=== PATIENT | female | born 1970 | race Caucasian/White ===

== ENCOUNTER → 2016-11-25 | Outpatient (CLI) | payer BC ==
[~2016-11-25] MED LIST: AMBIEN 10MG10 MG PO; LEVOXYL0.025 MG PO; NORCO 325 MG-51 TAB PO; PYRIDIUM 100MG100 MG PO; REMICADE V100 MG/VIA IV
== END ==
LOC: COL.RAD 12:45
DX: S92.421A Displaced fracture of distal phalanx of right great toe, initial encounter for closed fracture (principal); S92.024A Nondisplaced fracture of anterior process of right calcaneus, initial encounter for closed fracture; S92.254A Nondisplaced fracture of navicular [scaphoid] of right foot, initial encounter for closed fracture; Q66.89 Other specified congenital deformities of feet; X58.XXXA Exposure to other specified factors, initial encounter

== ENCOUNTER 2019-09-20 15:39 | Day surgery (SDC) | payer MEDICARE ==
[~2019-09-20] VITALS: Ht 165.1 cm; Wt 61.5 kg
[2019-09-20] VITALS (7 sets, daily range): BP systolic 88–107; BP diastolic 52–71; PULSE 64–85; TEMP 97.5–98.7
[2019-09-20] MEDS ORDERED: PHENERGAN50 M1 PO (17:06)
[2019-09-20] MEDS ORDERED: XANAX 0.5MG0.5 MG PO (17:07)
--- NOTE | 2019-09-20 19:26 | NUR ---
Patient left with PACU nurse DENICE Fernandez at this time.
--- NOTE | 2019-09-20 21:24 | NUR ---
Received report from DENICE Fernandez in PACU
--- NOTE | 2019-09-20 21:25 | NUR ---
Per Dr. Niurka christiansen to d/c BEHAVIORAL HEALTH CARE COORDINATOR pump
--- NOTE | 2019-09-20 21:35 | NUR ---
Arrived to 348 at 2124. Urinated 100 ml of reddish urine. Reports 7/10 pain. Drowsy at this time. VS taken. Will monitor.
--- NOTE | 2019-09-20 21:45 | NUR ---
Assessment complete. Lungs clear. Heart sounds normal. Bowels active x4. Pulses strong throughout. No edema noted. Reports 7/10 pain at this time. Denies needs. [facility] pharmacy called while in room regarding order for rocephin. Patient has anaphylaxis when taking penicillin, cannot take rocephin. Dr. More contacted to switched to levaquin 500mg IV Q24H. Order put in.
--- NOTE | 2019-09-20 22:05 | NUR ---
Refused ambien at this time.
[2019-09-21] VITALS: BP 88/55; PULSE 76; TEMP 97.9
--- NOTE | 2019-09-21 | NUR ---
Resting in bed. Denies needs. Denies pain. Call light in reach.
--- NOTE | 2019-09-21 01:12 | NUR ---
Patient reports 04/07 ABD/ right flank pain. Provided with PRN percocet. Also request ambien that was previous refused. Provided to pain. Denies other needs. Call light in reach.
[2019-09-21 04:00] VITALS: BP 93/54; PULSE 81; TEMP 98.3
--- NOTE | 2019-09-21 05:04 | NUR ---
Reports 7/10 pain. Provided with PRN percocet. Denies other needs at this time. Call light in reach.
--- NOTE | 2019-09-21 06:17 | NUR ---
Patient received x2 doses of percocet for flank pain throughout night. Blood tinged urine after cystoscopy. Otherwise uneventful. Resting in bed this AM. Call light in reach.
--- NOTE | 2019-09-21 07:22 | NUR ---
Report given to DENICE Vilchis
--- NOTE | 2019-09-21 07:24 | NUR ---
Spoke with елена Beckwith to change diet to general diet.
[2019-09-21 08:58] VITALS: BP 92/54; PULSE 83; TEMP 97.9
[2019-09-21 11:05] VITALS: BP 109/69; PULSE 76; TEMP 98.1
--- NOTE | 2019-09-21 12:00 | NUR ---
Patient is discharging home. Discharge instructions discussed with patient. patient did not verbalize any questions. Patient stated she has pain medications at home. Called Dr Harrell to ask about patients flomax, he stated to continue it and that finishing her cephalexin is ok for discharge antibiotic. Copies of discharge instructions given to patient. Explained the office will call to set up her procedure time for friday. All belongings packed up and sent with patient. Patient walked out via wheel chair.
== END 2019-09-21 12:00 | disposition home or self-care (01) ==
LOC: SDCO 15:39 → SURG 15:39 → SDCO 09-21 12:00
DX: N13.2 Hydronephrosis with renal and ureteral calculous obstruction (principal); G35 Multiple sclerosis; M79.7 Fibromyalgia; I31.3 Pericardial effusion (noninflammatory); E03.9 Hypothyroidism, unspecified; I95.9 Hypotension, unspecified; Z88.0 Allergy status to penicillin; Z88.5 Allergy status to narcotic agent; Z88.8 Allergy status to other drugs, medicaments and biological substances; Z79.899 Other long term (current) drug therapy; D70.4 Cyclic neutropenia; F41.9 Anxiety disorder, unspecified; Z97.8 Presence of other specified devices
CPT/HCPCS: OP; C1769; C2617; J0690; J1100; J1885; J1956; J2270; J2405; J2704; J3010; J7030; Q9967

== ENCOUNTER 2019-09-24 12:27 | Day surgery (SDC) | payer MEDICARE ==
[~2019-09-24] VITALS: Ht 165.1 cm; Wt 65.0 kg
[~2019-09-24 12:27] MED LIST changes: +PHENERGAN50 M1 PO; +XANAX 0.5MG0.5 MG PO
[2019-09-24] MEDS ORDERED: FEMRING0.1 MG/24 VG (12:57)
[2019-09-24] MEDS ORDERED: MOTRIN 600600 MG/TAB PO (12:58)
[2019-09-24] MEDS ORDERED: DIALUDIDPCA IT (12:59)
[2019-09-24] MEDS ORDERED: HORIZANT600 MG PO (13:01)
[2019-09-24 13:37] VITALS: BP 111/64; PULSE 75; TEMP 97.9
[2019-09-24 15:45] VITALS: BP 114/67; PULSE 72; TEMP 98.4
--- NOTE | 2019-09-24 15:50 | NUR ---
Patient up to room 346 from OR. Alert and oriented x 3. Patient up to restroom, voiding without difficulty. Denies pain at this time. Post op fluids infusing to right chest port. Post op VSS. Denies further needs at this time.
[2019-09-24 16:00] VITALS: BP 107/71; PULSE 71
[2019-09-24 16:15] VITALS: BP 115/76; PULSE 83
[2019-09-24 16:30] VITALS: BP 111/74; PULSE 83
--- NOTE | 2019-09-24 16:45 | NUR ---
Discharge education provided to patient. Educated on when to call provider. Patient has follow up appointment already scheduled with Dr. Gallagher. Tolerating diet without difficulty. Denies pain, states she is feeling much better than when she initially came in. Port deaccessed, heparinized and cleaned with clorahexidine. Dressing applied to port site. Patient out by wheelchair with surgical staff and friend.
== END 2019-09-24 16:50 | disposition home or self-care (01) ==
LOC: SDCO 12:27 → SURG 15:58 → SDCO 16:50
DX: N20.1 Calculus of ureter (principal); E03.9 Hypothyroidism, unspecified; G35 Multiple sclerosis; D70.4 Cyclic neutropenia; K76.0 Fatty (change of) liver, not elsewhere classified; Z88.0 Allergy status to penicillin; Z88.8 Allergy status to other drugs, medicaments and biological substances; I69.351 Hemiplegia and hemiparesis following cerebral infarction affecting right dominant side; M79.7 Fibromyalgia; Z79.899 Other long term (current) drug therapy
CPT/HCPCS: OP; C1769; J1100; J1940; J2405; J2704; J3010; J7120

== ENCOUNTER → 2022-05-06 | Outpatient (CLI) | payer MEDICARE ==
[~2022-05-06] MED LIST changes: +DIALUDIDPCA IT; +FEMRING0.1 MG/24 VG; +HORIZANT600 MG PO; +MOTRIN 600600 MG/TAB PO
== END ==
LOC: COL.RAD 14:15
DX: S40.911A Unspecified superficial injury of right shoulder, initial encounter (principal); X58.XXXA Exposure to other specified factors, initial encounter

== ENCOUNTER → 2022-05-16 | Outpatient (CLI) | payer MEDICARE | LOC: COL.RAD 09:30 | DX: M75.121 Complete rotator cuff tear or rupture of right shoulder, not specified as traumatic (principal) | CPT/HCPCS: Q9967 ==

== ENCOUNTER 2022-07-27 08:20 | Inpatient (IN) | payer MEDICARE ==
[2022-07-27] VITALS (16 sets, daily range): BP systolic 78–118; BP diastolic 41–74; PULSE 78–119; TEMP 98–102.4
[~2022-07-27] VITALS: Ht 165.1 cm; Wt 62.2 kg
--- NOTE | 2022-07-27 09:55 | NUR ---
PATIENT ARRIVED FROM [place] [facility]IA EMS. VITAL SIGNS STABLE. SEVERE CONSTANT 10/10 PAIN TO THE R SIDE AND R FLANK. WILL CALL PHYSICIAN.
[2022-07-27] MEDS ORDERED: HORIZANT600 MG PO (10:25)
--- NOTE | 2022-07-27 10:32 | NUR ---
PATIENT HAS SPINAL PAIN PUMP. PATIENT HAS SETTINGS ON HER PHONE IF NEEDED. WILL INFORM PREOP IN REPORT.
--- NOTE | 2022-07-27 11:15 | NUR ---
RIYA AT PATIENT BEDSIDE, HEMAL FROM PACU HERE TO GET PROCEDURAL AND ANESTHESIA CONSENT AND TAKE PATIENT TO PREOP.
--- NOTE | 2022-07-27 14:52 | NUR ---
PATIENT RESTING IN BED. VITALS STABLE AT THIS TIME. IV FLUIDS INFUSING, CALL LIGHT WITHIN REACH.
--- NOTE | 2022-07-27 18:46 | NUR ---
BETTIENET ALERT AND AWAKE, RESTING IN BED USING HER CELLPHONE. PATIENT STATED SHE IS HAVING 7/10 PAIN TO THE RIGHT SIDE "WHERE MY STONE IS." VITALS RE TAKEN D/T RECENT LOW BP. VITALS AT THIS TIME STABLE AND IMPROVED FROM EARLIER. IV DILAUDID AND ZOFRAN GIVEN. [facility]IENT CALL [facility] WITH IN REACH. NO OTHER NEEDS OR COMPLAINTS AT THIS TIME.
--- NOTE | 2022-07-27 20:30 | NUR ---
Shift assessment done. On pt's back, right side, she reported that has a spine pain pump. Also reports having excruciating pain due to kidney stone, on right flank of her abdomen. Folley catheter is in place, with dark yellow, cloudy urine in her bag. Fluids running through right chest catheter. All medication administered per emar. Call light is left within reach.
[2022-07-28 02:30] VITALS: TEMP 99.3
[2022-07-28 03:42] VITALS: BP 94/62; PULSE 90; TEMP 97.9
--- NOTE | 2022-07-28 06:12 | NUR ---
Provider notified during the night that pt's pain didn't improve with PRN medication administered once every hour by charge nurse. medication dose was increased after this event per physician's orders. Pain was scored between 8 to 10 almost all night. Physician was notified again about pain not improving and this time FINISHING ROOM OPERATOR Dialudid pump level [address] Umana. High temperature of 102.4 around midnight was also reported along with s/s of nausea. Verbal orders received and notified to Charge Nurse by this NEGATIVE CHECKER. Fever started resolving around 0100. Pt started to feel sleepy around 0400 and able to rest since then. Call light is within reach.
[2022-07-28 08:00] VITALS: BP 96/56; PULSE 86; TEMP 98.5
--- NOTE | 2022-07-28 10:31 | NUR ---
SW met with patient to complete intake. Patient provides that she lives alone close to [facility]. Next of kin and DPOA/HC is her daughter Roopa Campbell [phone]. Patient provides that she does utilize a cane, is independent with ADL's and does not utilize HH services at this time. PCP is Dr. Spivey, and pharmacy is [facility] in [place]. Patient plans to return to her home upon DC. SW will continue to follow. DC plan: home
[2022-07-28 11:33] VITALS: BP 92/57; PULSE 89; TEMP 97.8
[2022-07-28 13:42] VITALS: BP 92/57; PULSE 89; TEMP 97.8
--- NOTE | 2022-07-28 20:00 | NUR ---
Pt continues reporting pain scoring between 8 to 10. A&O x4. Pt continues having Soft BP. Shift assessment completed. ALUMINIZER pump at level [address] Medication administered per emar. Fluids running through Right Chest port. Pt is encouraged to use call light whenever she needs to use the restroom. Call light is within reach.
[2022-07-28 20:59] VITALS: BP 98/64; PULSE 84; TEMP 98.5
[2022-07-29] VITALS (8 sets, daily range): BP systolic 92–104; BP diastolic 55–67; PULSE 80–100; TEMP 97.4–98.7
--- NOTE | 2022-07-29 07:04 | NUR ---
Pt states feeling better than previous night, altough she states that the pain is still high, scoring it between 7 to 8. PRN medications administered. THERMAL SURFACING MACHINE OPERATOR pump remains in place. Call light is wihtin reach.
--- NOTE | 2022-07-29 09:28 | NUR ---
Initial visit; Patient thanked Ambulatory Services Representative for coming in and offering prayer and God's blessings for her.
--- NOTE | 2022-07-29 09:31 | NUR ---
VSS, PT A&O X4, PT ABLE TO MAKE NEEDS KNOWN, PT REPORTS PAIN BETWEEN 7-8/10, PT EDUCATED ON MILK OF LIME SLAKER PUMP, FALL PRECAUTIONS IN PLACE, ETC02 MONITOR IN PLACE, CALL LIGHT IN REACH
--- NOTE | 2022-07-29 23:28 | NUR ---
PATIENT REPORTING PAIN AT A 7 AND NOT GETTING ANY RELIEF FROM DILAUDID DIVE SUPERINTENDENT. CALLED CLOTH PRINTING UTILITY WORKER PROVIDER AND RECEIVED ORDERS FOR 2 MG BOLUS OF DILAUDID, TYLENOL EVERY 6 HOURS AND TORADOL ONCE PENDING LABS. PATIENT GIVEN BOLUS AND NOTED TO BE RESTING QUIETLY WILL CONTINUE TO MONITOR.
[2022-07-30] VITALS (9 sets, daily range): BP systolic 97–118; BP diastolic 59–69; PULSE 80–98; TEMP 97.9–98.5
[2022-07-30] LABS: CALCIUM 8.5 mg/dL (8.4-10.2); CREATININE, serum 0.62 mg/dL (0.57-1.11); POTASSIUM 3.8 mmol/L (3.5-4.5)
--- NOTE | 2022-07-30 06:32 | NUR ---
PATIENT REPORTED SLEEPING WELL AFTER ORDERED DOSE OF DILAUDID. PATIENT REQUIRED PRN BENADRYL THIS SHIFT FOR COMPLAINTS OF ITCHING. PATIENT FLUIDS AND BACTERIOLOGIST SOIL INFUSING WITH NO DIFFICULTY, PATIENT ETCO2 MONITOR REPLACED PER RT AND TOELRATING WELL.
--- NOTE | 2022-07-30 09:47 | NUR ---
Dermatologist And Dermatopathologist collaborated with RN who advised patient did not require PT/OT eval.
--- NOTE | 2022-07-30 10:13 | NUR ---
Follow-up visit: Patient thanked Skip Pit Worker for stopping in again. Selene states she is not doing any better yet but knows it will get better. She requested prayer. Skip Pit Worker offered prayer and God's blessings and will continue to look in on Selene, a very kind and devout person.
[2022-07-31 03:53] VITALS: BP 116/65; PULSE 91; TEMP 98.2
[2022-07-31 07:25] VITALS: BP 108/67; PULSE 84; TEMP 97.9
--- NOTE | 2022-07-31 07:43 | NUR ---
DR. RITTER IN THIS MORNING TO SEE PATIENT. PER DR. RITTER, PROCEDURE SCHEDULED FOR AROUND [address] RITTER, PATIENT TO TRIAL PO DILAUDED FOR PAIN MANAGEMENT SHE CANNOT GO HOME WITH IV PAIN MEDICATION. PATIENT AGREEABLE TO TRIAL. DENIES NEEDS AT THIS TIME, CALL LIGHT IN PLACE.
--- NOTE | 2022-07-31 09:25 | NUR ---
SHIFT ASSESSMENT COMPLETED AND MEDICATIONS ADMINISTERED PER ORDER. PATIENT IS ALERT AND ORIENTED X4. LUNGS CTA. C/O PAIN 7-8/10 TO RIGHT FLANK, PRN PO DILAUDED GIVEN PER ORDER. PATIENT STATES SHE FEELS THIS MEDICATION MAY NOT TREAT HER PAIN DUE TO HER MALABSORPTION SYNDROME, PATIENT UPDATED THAT PRN IV DILAUDED IS STILL AVAILABLE IF SHE FEELS HER PAIN IS NOT MANAGED ADEQUATELY THROUGH PO MEDICATION. C/O NAUSEA, SCOPOLAMINE PATCH APPLIED. PORT TO RIGHT UPPER CHEST NOTED, DRESSING INTACT, LINE CLAMPED. DENIES PAIN TO THE AREA. DENIES FURTHER NEEDS AT THIS TIME, CALL LIGHT WITHIN REACH.
--- NOTE | 2022-07-31 10:09 | NUR ---
PATIENT PAIN LEVEL REASSESSED FOLLOWING PO DILAUDED ADMINISTRATION. PER PATIENT, SHE CONTINUES TO HAVE 7.5/10 PAIN TO HER RIGHT FLANK. PRN IV DILAUDED OFFERED, PATIENT STATES SHE WOULD LIKE TO WAIT AND GIVE THE PO MEDICATION MORE TIME TO WORK. REQUESTED PATIENT USE CALL LIGHT IF SHE WOULD LIKE FURTHER PAIN MEDICATION, PATIENT AGREEABLE.
[2022-07-31 11:16] VITALS: BP 106/61; PULSE 57; TEMP 98.9
--- NOTE | 2022-07-31 12:36 | NUR ---
PAIN REASSESSMENT COMPLETED POST PAIN MEDICATION ADMINISTRATION. PER PATIENT, HER PAIN CONTINUES AT A 7/10 TO HER RIGHT FLANK. PATIENT STATES SHE DOES NOT WANT FURTHER MEDICATION AT THIS TIME, STATES SHE HAS CHRONIC PAIN THAT IS RARELY RELIEVED BY PAIN MEDICATION.
[2022-07-31 16:00] VITALS: BP 108/61; PULSE 87; TEMP 98.4
--- NOTE | 2022-07-31 18:05 | NUR ---
PATIENT HAS HAD AN UNEVENTFUL DAY. PER PATIENT, SHE IS STILL CONTINUING TO HAVE PAIN, BUT DENIES NEED FOR FURTHER INTERVENTION AT THIS TIME. NO SCDS IN PLACE AT THIS TIME, PATIENT STATES SHE DOES NOT FEEL SHE NEEDS THEM SHE IS UP WALKING AROUND FREQUENTLY. DENIES NEEDS AT THIS TIME. CALL LIGHT LEEANNA BAILON.
[2022-07-31 19:33] VITALS: BP 109/75; PULSE 90; TEMP 98.1
[2022-07-31 23:43] VITALS: BP 118/76; PULSE 92; TEMP 97.4
[2022-08-01] VITALS (11 sets, daily range): BP systolic 98–117; BP diastolic 63–85; PULSE 62–94; TEMP 97.5–98.6
--- NOTE | 2022-08-01 06:30 | NUR ---
THE PATIENT HAD AN UNEVENTFUL NIGHT. THIS PATIENT HAS BEEN ON A LOT OF IV DILAUDID WELL PO. SHE WILL BE HAVING SURGERY TO REMOVE THE KIDNEY STONE TODAY. SHE DID SLEEP VERY WELL LAST NIGHT. THIS IS THE FIRST GOOD NIGHT SLEEP SHE HAS GOTTEN IN MORE THAN 4 DAYS. THE PATIENT REMAINS ASLEEP, AND HAS ORDERED BREAKFAST SHE GOES NPO JUST AFTER BREAKFAST. NO OTHER CONCERNS AT THIS TIME.
--- NOTE | 2022-08-01 07:00 | NUR ---
PT RESTING IN BED. PT DENIES NEEDS AT THIS TIME. PT HAS CALL LIGHT WITHIN REACH AND INSTRUCTED TO CALL WITH ALL NEEDS.
--- NOTE | 2022-08-01 16:45 | NUR ---
PT BACK FROM OR. PT IS AXOX4. PT UP TO BATHROOM. VSS. PT GIVEN WATER AND ORDERING DINNER. PT HAS CALL LIGHT WITHIN REACH AND INSTRUCTED TO CALL WITH ALL NEEDS.
--- NOTE | 2022-08-02 01:30 | NUR ---
THE PATIENT CALLED FOR PAIN MEDICATIONS.
[2022-08-02 03:34] VITALS: BP 108/66; PULSE 854; TEMP 97.9
[2022-08-02] MEDS ORDERED: LEVAQUIN 5500 MG/TA1 PO (07:10)
[2022-08-02] MEDS ORDERED: FLOMAX 0.40.4 MG/CAP PO (07:10)
[2022-08-02] MEDS ORDERED: DILAUDID 2MG TAB2 MG PO (07:10)
[2022-08-02 07:29] VITALS: BP 97/58; PULSE 78; TEMP 97.7
--- NOTE | 2022-08-02 09:06 | NUR ---
SHIFT ASSESSMENT COMPLETED. PATIENT IS ALERT AND ORIENTED X4. LUNGS CTA. C/O PAIN 6-7 TO RIGHT FLANK, DENIES NEED FOR PAIN MEDICATION AT THIS TIME AND STATES SHE WOULD LIKE TO WAIT UNTIL SHE IS ABOUT TO DISCHARGE. WAITING FOR FAMILY MEMBER TO PICK HER UP. DENIES NEEDS AT THIS TIME, CALL LIGHT WITHIN REACH.
--- NOTE | 2022-08-02 11:18 | NUR ---
PATIENT DISCHARGED PER ORDERS. REVIEWED DISCHARGE MEDICATIONS, EDUCATION, AND INSTRUCTIONS WITH PATIENT WHO VERBALIZED UNDERSTANDING. PORT TO RIGHT UPPER CHEST DE-ACCESSED, BAND AID APPLIED, NO BLEEDING NOTED. SCOPOLAMINE PATCH TO RIGHT BACK OF EAR REMOVED PRIOR TO DISCHARGE. PATIENT DENIES ANY QUESTIONS OR CONCERNS AT THIS TIME. ESCORTED OUT BY STAFF MEMBER.
== END 2022-08-02 10:30 | disposition home or self-care (01) | DRG 660 ==
LOC: SURG 08:20 → MEDICAL 09:50
PROVIDERS: Urology; ADMIT Urology
PROC: 0T768DZ Dilation of Right Ureter with Intraluminal Device, Via Natural or Artificial Opening Endoscopic (ICD-10-PCS; principal; 2022-07-27 11:30)
PROC: 0T768DZ Dilation of Right Ureter with Intraluminal Device, Via Natural or Artificial Opening Endoscopic (ICD-10-PCS; 2022-08-01 15:30)
PROC: 0TC68ZZ Extirpation of Matter from Right Ureter, Via Natural or Artificial Opening Endoscopic (ICD-10-PCS; 2022-08-01 15:30)
DX: N20.1 Calculus of ureter (principal); N39.0 Urinary tract infection, site not specified; Z79.1 Long term (current) use of non-steroidal anti-inflammatories (NSAID); Z79.891 Long term (current) use of opiate analgesic; Z79.899 Other long term (current) drug therapy
CPT/HCPCS: OP; A4314; C1769; C2617; G0378; J0690; J1170; J1200; J1644; J1885; J1956; J2250; J2405; J2550; J2704; J3010; J7120